=== PATIENT | male | born 1960 | race Caucasian/White ===

== ENCOUNTER 2017-07-23 07:15 | Observation (INO) | payer OTHER ==
[~2017-07-23] VITALS: Ht 170.2 cm; Wt 83.5 kg
[2017-07-23] VITALS (13 sets, daily range): BP systolic 85–108; BP diastolic 51–73
--- NOTE | ~2017-07-23 | H ---
[address] [address] HISTORY AND PHYSICAL Name: KORY BLAS Room: [address] IN ..#: [id number] Admission: 07/23/17 Attend Phys: Ryan Olmos MD, Discharge: 07/24/17 Date of : 56 Report #: [id number] THIS REPORT FOR: //name// Please refer to the History and Physical performed in the physician's office. By: 1452Medical Records Staff COLT /JOHNNY
[~2017-07-23 07:15] MED LIST: ALDACTONE25 MG PO; ASPIR 8181 MG PO; ASPIRIN325 PO; ATORVASTATIN CA40 MG PO; CARVEDILOL3.125 MG PO; EFFIENT10 MG PO; LIPITOR80 MG PO; LOPRESSOR25 PO; NITROGLYCERIN0.4 MG SUBLING; PAXIL10 MG
[2017-07-23 08:00] LABS: HEMATOCRIT 40.2 % (42.0-52.0); HEMOGLOBIN 13.6 gm/dL (14.0-18.0); MCH 31.9 pg (26.0-34.0); MCHC 33.8 g/dL (28.0-37.0); MCV 94.4 fL (80.0-100.0); MPV 9.7 fl. (7.2-11.1); RBC 4.26 mil/uL (4.50-6.00); RDW-CV 13.8 % (10.5-14.5); WBC 7.6 thou/uL (4.0-11.0)
[2017-07-23] MEDS ORDERED: PLAVIX 75 MG TA75 M1 PO (08:14)
[2017-07-23] MEDS ORDERED: LASIX 20 MG TAB20 MG PO (08:15)
[2017-07-23 08:19] LABS: APTT 27.8 Seconds (25.0-31.3); PROTIME 10.2 Seconds (9.20-11.50)
[2017-07-23 09:07] LABS: ANION GAP 7 mmol/L (7-16); BUN 22 mg/dL (7-18); CALCIUM 9.7 mg/dL (8.5-10.1); CHLORIDE 103 mmol/L (98-107); CO2 29 mmol/L (21-32); CREATININE 1.1 mg/dL (0.6-1.3); GLUCOSE 96 mg/dL (70-99); POTASSIUM 3.7 mmol/L (3.5-5.1); SODIUM 139 mmol/L (136-145)
[2017-07-23 09:12] LABS: ALBUMIN 3.7 g/dL (3.4-5.0); ALKALINE PHOSPHATASE 108 U/L (46-116); CHOLESTEROL 117 mg/dL (<200); HDL CHOLESTEROL 35 mg/dL (>40); LDL CHOLESTEROL 67 mg/dL (<100); SGOT 30 U/L (15-37); SGPT 48 U/L (30-65); TC:HDL 3.3 Ratio (Not establshd); TOTAL BILIRUBIN 0.4 mg/dL (<0.1-1.0); TOTAL PROTEIN 7.7 g/dL (6.4-8.2); TRIGLYCERIDE 75 mg/dL (<150); VLDL 15 mg/dL (<40)
[2017-07-23 09:15] LABS: SERUM ASSESSMENT Clear
--- NOTE | 2017-07-23 12:57 | CARD ---
[facility] [address] [place] [address] CARDIAC CATH REPORT Name: KORY BLAS Room: [address] IN [facility]#: [id number] Admission: 07/23/17 Attend Phys: Ryan Olmos MD, Discharge: Date of : 56 Report #: [id number] THIS REPORT FOR: //name// APPROVED REPORT Study performed: 07/23/2017 08:44:53 Patient Details Patient Status: Out-Patient Room #: The patient is a 57 year-old male Event Personnel Kayce Pagan, Kirstin Conrad RN RN, Sharonda Govea RN RN, Elsie Valdez Holkins, John Agricultural Engineer Procedures Performed Art Access - R femoral artery* , Left Heart CatheterizationLeft Heart Cath w/LT VGram [id number] LHCLV ANNE Place w/wo Plasty Single CIRC [id number] Indication Positive stress test, Chest pain Risk Factors Peripheral Vascular Disease, Hypercholesterolemia, Hypertension Previous Procedures/Diagnoses Previous CABGPrevious PCI Admission/Lab Medications/Medications given during procedure Aspirin, Platelet Aff. Inhib., Angiomax bolus and infusion Procedure Narrative The patient was brought electively to the Cardiac Catheterization Laboratory and was prepped and draped in a sterile manner. The right femoral was infiltrated with 2% Lidocaine subcutaneous anesthesia. A 6fr Ultimum Sheath sheath was inserted into the right femoral artery. Coronary angiography was performed using coronary diagnostic catheters. The right coronary system was accessed and visualized with a Diagnostic 6fr JR 4 catheter. The left coronary system was accessed and visualized with a Diagnostic 6fr JL 4 catheter. The left ventricle was accessed and visualized with a Diagnostic catheter. Left ventricular/Aortic Valve gradient [place] [address] CARDIAC CATH REPORT Name: KORY BLAS Room: [address]#: [id number] Admission: 07/23/17 Attend Phys: Ryan Olmos MD, Discharge: Date of : 56 Report #: [id number] pullback. Left ventriculogram was performed in LOPEZ projection. Pre-demployment femoral angiogram was performed . Closure device was deployed with a 6 Fr Angioseal STS 6Fr. The patient tolerated the procedure well and there were no complications associated with the procedure. There was no hematoma. Intraoperative Conscious Sedation Sedation start time: 09:45 Case end Time: 11:29 Fentanyl 100 mcg Versed 4 mg Fluoro Time: 22.6 minutes Dose: 3671 mGy Contrast Type and Amount: Visipaque 420 ml Coronary Angiography The patient's coronary anatomy is left dominant. [place] Artery Percent Stenosis #1 there is a single totally occluded vein graft to the first diagonal branch of the LAD Diagnostic Cath Left Main 0% narrowing LAD 40% mid LAD narrowing with 30% distal LAD narrowing; 100% occlusion of the first diagonal branch of the LAD Circumflex Dominant vessel with 40% proximal narrowing and 80% tubular distal narrowing before the posterior descending branch Right Coronary Small nondominant vessel with 40% proximal and mid vessel narrowing Left Ventriculography The left ventricle is normal in size with contractility. The left ventricular ejection fraction is estimated to be 40%. Left ventricular wall motion abnormalities are present. There is no mitral insufficiency. There is akinesis of the midportion of the anterior wall and hypokinesis of the mid inferior wall Hemodynamics The aortic pressure is 96/59 mmHg with a mean of mmHg. The left ventricular pressure is 98/1 mmHg with a mean of mmHg. The left ventricular end diastolic pressure is 7 mmHg. There was no gradient across the aortic valve upon pullback. Pullback from the left ventricle to the aorta revealed no gradient across [place] [address] CARDIAC CATH REPORT Name: KORY BLAS Room: [address] IN [facility]#: [id number] Admission: 07/23/17 Attend Phys: Ryan Olmos MD, Discharge: Date of : 56 Report #: [id number] PCI Technique Lesion Anticoagulation was achieved with Angiomax. Percutaneous coronary intervention was performed on the distal circumflex artery segment. The lesion stenosis prior to intervention was 80% with TAMARA 3 flow. A 6FR LAUNCHER EBU 3.5 Guide Catheter was used to engage the left ostium. A IG: ProwaterFlex 180CM Interventional Guidewire was used to cross the lesion. BALLOON DILATION A Balloon catheter Trek RX 2.25 X 12 was inserted and inflated up to 8.00atm for 11seconds. STENT DEPLOYMENT A drug-eluting stent Xience Alpine RX 2.25X15, 2.25x12 was inserted and inflated up to 10, 8atm for 12seconds. Additional Inflation: 8.00atm for 9seconds. POST STENT DEPLOYMENT BALLOON DILATION A Balloon catheter NC Trek RX 2.25x12 was inserted and inflated up to 18atm for 10seconds. Final angiography reveals 10 % stenosis with TAMARA 3 flow. STENT DEPLOYMENT A drug-eluting stent Xience Alpine RX 2.25X12 was inserted and inflated up to 8.00atm for 13seconds. Additional Inflation: 12.00atm for 8seconds. Additional Inflation: 10.00atm for 10seconds. POST STENT DEPLOYMENT BALLOON DILATION A Balloon catheter NC Trek RX 2.25x12 was inserted and inflated up to 14.00atm for 10seconds. Additional Inflation: 18.00atm for 10seconds. Conclusion #1 significant coronary artery disease characterized by the following: A 40% mid LAD narrowing with total occlusion of the first diagonal branch of the LAD B dominant circumflex with 40% proximal narrowing and 80% distal narrowing before a prominent posterior descending branch C small nondominant right coronary with 40% proximal and [place] [address] CARDIAC CATH REPORT Name: KORY BLAS Room: [facility] IN [facility]#: [id number] Admission: 07/23/17 Attend Phys: Ryan Olmos MD, Discharge: Date of : 56 Report #: [id number] #2 graft study characterized by following: A single totally occluded vein graft to the diagonal branch of the LAD #3 moderate impairment in global left ventricular systolic function, estimated ejection fraction 40% with mid anterior akinesis and mid inferior hypokinesis #4 normal left-sided hemodynamics study #5 successful percutaneous coronary intervention with deployment of 2 drug-eluting stents at the site of 80% distal circumflex stenosis with 10% residual narrowing following stent deployment and TAMARA-3 flow to the distal vessel Recommendations Cardiac Risk Reduction Program Aggressive Medical Therapy Medications Administered Aspirin (any) Prasugrel Diagnostic Cath Approved by: Ryan Olmos MD Date/Time: 07/23/17 at 1254 hrs. <ELECTRONICALLY SIGNED> By: Ryan Olmos MD, FACC 07/23/17 1257 1257 1257Joruth Olmos MD, FAC /INF
--- NOTE | 2017-07-23 13:12 | EKG ---
[place] [address] ELECTROCARDIOGRAM REPORT Name: KORY BLAS Room: [address] IN .R.#: [id number] Admission: 07/23/17 Attend Phys: Ryan Olmos MD, Discharge: Date of : 56 Report #: [id number] THIS REPORT FOR: //name// [facility] Test Date: 2017-07-23 Test Time: 08:00:11 Pat Name: KORY WAN Department: Room: Gender: Product Tester: : 1960 Requested By: Ryan Olmos Order Number: [id number] Arianna MD: Ryan Olmos Measurements Intervals [place] Rate: 59 P: -2 UT: 193 QRS: 79 QRSD: 112 T: 83 QT: 407 QTc: 404 Interpretive Statements Sinus rhythm IRBBB and LPFB Low voltage, extremity and precordial leads No previous ECG available for comparison Electronically Signed On 07-23-2017 13:12:00 CDT by Ryan Olmos [email or web address] <ELECTRONICALLY SIGNED> By: Ryan Olmos MD, [facility] 07/23/17 1312 9 9 Ryan Olmos MD, FACC /EPI
--- NOTE | 2017-07-23 13:13 | EKG ---
[place] [address] ELECTROCARDIOGRAM REPORT Name: KORY BLAS Room: [address] IN [facility].#: [id number] Admission: 07/23/17 Attend Phys: Ryan Olmos MD, Discharge: Date of : 56 Report #: [id number] THIS REPORT FOR: //name// [facility] Test Date: 2017-07-23 Test Time: 12:52:09 Pat Name: KORY WAN Department: Room: Gender: Java Software: : 1960 Requested By: Ryan Olmos Order Number: [id number] Arianna MD: Ryan Olmos Measurements Intervals [place] Rate: 61 P: 35 WI: 198 QRS: 106 QRSD: 107 T: 87 QT: 405 QTc: 408 Interpretive Statements Sinus rhythm Low voltage, precordial leads Consider right ventricular hypertrophy No previous ECG available for comparison Electronically Signed On 07-23-2017 13:13:05 CDT by Ryan Olmos [email or web address] <ELECTRONICALLY SIGNED> By: Ryan Olmos MD, [facility] 07/23/17 1313 1251 51 Ryan Olmos MD, FACC /EPI
[2017-07-24] VITALS: BP 90/55
[2017-07-24 04:00] VITALS: BP 94/64
[2017-07-24 04:56] LABS: HEMATOCRIT 38.5 % (42.0-52.0); HEMOGLOBIN 12.9 gm/dL (14.0-18.0); MCH 32.1 pg (26.0-34.0); MCHC 33.6 g/dL (28.0-37.0); MCV 95.6 fL (80.0-100.0); MPV 10.1 fl. (7.2-11.1); RBC 4.02 mil/uL (4.50-6.00); RDW-CV 14.2 % (10.5-14.5); WBC 7.7 thou/uL (4.0-11.0)
[2017-07-24 05:29] LABS: CALCIUM 8.8 mg/dL (8.5-10.1); CREATININE 1.1 mg/dL (0.6-1.3); TOTAL BILIRUBIN 0.4 mg/dL (<0.1-1.0); TROPONIN-I LEVEL 0.08 ng/mL (<0.06)
[2017-07-24 05:30] LABS: POTASSIUM 4.8 mmol/L (3.5-5.1)
[2017-07-24 08:46] VITALS: BP 107/72
[2017-07-24 09:34] VITALS: BP 112/63
[2017-07-24] MEDS ORDERED: EFFIENT10 MG PO (10:14)
--- NOTE | 2017-07-24 11:42 | EKG ---
[place] [address] ELECTROCARDIOGRAM REPORT Name: KORY BLAS Room: [address] IN [facility]#: [id number] Admission: 07/23/17 Attend Phys: Ryan Olmos MD, Discharge: 07/24/17 Date of : 56 Report #: [id number] THIS REPORT FOR: //name// [facility] Test Date: 2017-07-24 Test Time: 04:40:22 Pat Name: KORY BLAS Department: Room: Gender: Director Counseling Bureau: [facility] : 1960 Requested By: Ryan Olmos Order Number: [id number] Reading MD: Byron Nielsen Measurements Intervals [place] Rate: 63 P: 1 MA: 185 QRS: 96 QRSD: 108 T: 89 QT: 401 QTc: 411 Interpretive Statements Sinus rhythm Borderline right axis deviation Low voltage, extremity and precordial leads RSR' in V1 or V2, probably normal variant Nonspecific T abnormalities, lateral leads Compared to ECG 07/23/2017 12:52:09 RSR' in V1 or V2 now present T-wave abnormality now present Electronically Signed On 07-24-2017 11:42:05 CDT by Byron Nielsen [email or web address] <ELECTRONICALLY SIGNED> By: Byron Nielsen MD, [facility] 07/24/17 1142 9 9 Byron Nielsen MD, [facility] /EPI
--- NOTE | 2017-07-25 13:11 | D ---
[facility] [address] [place] [address] DISCHARGE SUMMARY Name: KORY BLAS Room: [address] IN M.R.#: [id number] Admission: 07/23/17 Attend Phys: Ryan Olmos MD, Discharge: 07/24/17 Date of : 56 Report #: [id number] THIS REPORT FOR: //name// CC: Ryan Anguiano DATE OF SERVICE: 07/24/2017 FINAL DISCHARGE DIAGNOSES: 1. Abnormal nuclear stress test. 2. Recurrent chest pain. 3. Coronary artery disease, status post remote coronary artery bypass grafting and more recent percutaneous coronary intervention to the distal circumflex on 07/23/2017. 4. Ischemic cardiomyopathy. 5. Hypertension. 6. Hyperlipoproteinemia. PROCEDURES: 07/23/2017 -- left heart catheterization, left ventriculography, selective coronary arteriography, aortocoronary saphenous vein bypass graft study, and percutaneous coronary intervention to the distal circumflex. The patient is a very pleasant 57-year-old male with complex coronary artery disease, status post remote coronary artery bypass grafting and inferolateral infarction interrupted by stenting of the circumflex 2 years ago. He presented now with episodes of chest discomfort and an abnormal nuclear stress test. In that context, cardiac catheterization was performed. That study demonstrated totally occluded vein graft to the diagonal with 40% mid LAD narrowing, 40% narrowing in the mid portion of the right coronary artery and 40% proximal circumflex with 80% distal circumflex narrowing, this being a dominant vessel with a narrowing in the circumflex being just prior to a prominent posterior descending branch. I deployed 2 drug-eluting stents in the distal circumflex with a 10% residual narrowing at the site of previously noted 80% stenosis. The patient did well post-procedurally and ambulated in the hallways without difficulty. LABORATORY DATA: On 07/24/2017 revealed a sodium of 142, potassium 4.8, BUN 17, creatinine 1.1, hemoglobin 12.9, white blood cell count 7700 with 163,000 platelets. Troponin 0.08. Cholesterol 117, triglycerides 75, HDL 35, LDL 67. The patient was discharged to home on the following medications: Aspirin 81 mg daily, atorvastatin 80 mg at bedtime, carvedilol 6.25 mg b.i.d., furosemide 20 mg daily, prasugrel or Effient 10 mg daily with a 60 mg loading dose given on 07/23/2017. [place] [address] DISCHARGE SUMMARY Name: KORY BLAS Room: [address]#: [id number] Admission: 07/23/17 Attend Phys: Ryan Olmos MD, Discharge: 07/24/17 Date of : 56 Report #: [id number] The patient will be seen in followup by myself on 09/01/2017. <ELECTRONICALLY SIGNED> By: Ryan Olmos MD, [facility] 07/25/17 1311 0932 [id number] Ada Olmos MD, [facility]ALS[facility] /nt
[2017-08-04] MEDS ORDERED: ALLOPURINOL 10100 M1 PO (09:45)
[2017-08-04] MEDS ORDERED: K-DUR10 MEQ PO (09:45)
== END 2017-07-24 10:47 | disposition home or self-care (01) ==
LOC: M.CL 07:15 → M.TBA-CV 11:48 → M.2W 11:48
PROVIDERS: ADMIT Internal Medicine
DX: I25.10 Atherosclerotic heart disease of native coronary artery without angina pectoris (principal); I25.5 Ischemic cardiomyopathy; I21.4 Non-ST elevation (NSTEMI) myocardial infarction; I10 Essential (primary) hypertension; I42.9 Cardiomyopathy, unspecified; E78.00 Pure hypercholesterolemia, unspecified; R94.39 Abnormal result of other cardiovascular function study; Z98.890 Other specified postprocedural states; Z72.89 Other problems related to lifestyle; Z87.891 Personal history of nicotine dependence; Z95.1 Presence of aortocoronary bypass graft; Z95.5 Presence of coronary angioplasty implant and graft; R07.9 Chest pain, unspecified

== ENCOUNTER 2020-01-10 09:24 | Observation (INO) | payer OTHER ==
[2020-01-10] VITALS (18 sets, daily range): BP systolic 93–122; BP diastolic 49–73
[~2020-01-10] VITALS: Ht 170.2 cm; Wt 73.9 kg
[~2020-01-10 09:24] MED LIST changes: +ALLOPURINOL 10100 M1 PO; +ALLOPURINOL 30300 M1 PO; +FISH OIL 1,001000 M2 PO; +K-DUR10 MEQ PO; +LASIX 20 MG TAB20 MG PO; +LYRICA25 MG PO; +MELOXICAM15 MG PO; +PLAVIX 75 MG TA75 M1 PO
[2020-01-10] MEDS ORDERED: VITAMIN B COMP1 EACH PO (09:47)
[2020-01-10] MEDS ORDERED: COQ-10100 MG PO (09:48)
[2020-01-10] MEDS ORDERED: MITIGARE0.6 MG PO (09:48)
[2020-01-10] MEDS ORDERED: GLUCOSAMINE &1 EACH PO (09:50)
[2020-01-10] MEDS ORDERED: RESTORIL30 MG PO (09:50)
[2020-01-10 10:23] LABS: HEMATOCRIT 40.5 % (42.0-52.0); HEMOGLOBIN 13.4 gm/dL (14.0-18.0); MCH 31.3 pg (26.0-34.0); MCHC 33.1 g/dL (28.0-37.0); MCV 94.6 fL (80.0-100.0); MPV 9.6 fl. (7.2-11.1); RBC 4.28 mil/uL (4.50-6.00); RDW-CV 14.4 % (10.5-14.5); WBC 6.9 thou/uL (4.0-11.0)
[2020-01-10 10:29] LABS: ANION GAP 4 mmol/L (7-16); BUN 22 mg/dL (7-18); CALCIUM 9.3 mg/dL (8.5-10.1); CHLORIDE 106 mmol/L (98-107); CO2 31 mmol/L (21-32); CREATININE 1.1 mg/dL (0.6-1.3); GLUCOSE 101 mg/dL (70-99); POTASSIUM 4.5 mmol/L (3.5-5.1); SODIUM 141 mmol/L (136-145)
[2020-01-10 10:34] LABS: ALBUMIN 3.6 g/dL (3.4-5.0); ALKALINE PHOSPHATASE 99 U/L (46-116); CHOLESTEROL 119 mg/dL (<200); HDL CHOLESTEROL 54 mg/dL (>40); LDL CHOLESTEROL 60 mg/dL (<100); SGOT 26 U/L (15-37); SGPT 40 U/L (30-65); TC:HDL 2.2 Ratio (Not establshd); TOTAL BILIRUBIN 0.4 mg/dL (<0.1-1.0); TOTAL PROTEIN 7.4 g/dL (6.4-8.2); TRIGLYCERIDE 25 mg/dL (<150); VLDL 5 mg/dL (<40)
[2020-01-10 10:36] LABS: SERUM ASSESSMENT Clear
[2020-01-10 10:42] LABS: APTT 25.4 Seconds (25.0-31.3); PROTIME 10.5 Seconds (9.20-11.50)
--- NOTE | 2020-01-10 18:45 | CARD ---
[address] [address] CARDIAC CATH REPORT Name: KORY BLAS Room: [address] M.R.#: [id number] Admission: 01/10/20 Attend Phys: Ryan Olmos MD, Discharge: Date of : 56 Report #: [id number] THIS REPORT FOR: //name// cc: Mireille Park Christine L. DO ~ APPROVED REPORT Study performed: 01/10/2020 11:29:20 Patient Details Patient Status: Out-Patient Room #: The patient is a 59 year-old male Event Personnel Lavern Dunne RN RN, Joseph Harmon RTR Monitor, Bradley Lorenzo Holkins, John Mail Clerk Bills, Ailin Dias RTR Monitor Procedures Performed Left Heart Cath Coronaries, Bypass Grafts Art Access - R femoral artery ANNE w/Atherectomy Single LAD Hemostasis w/ Angioseal Indication Unstable angina , Positive stress test Risk Factors Hypercholesterolemia, Hypertension Previous Procedures/Diagnoses Previous CABG, Previous NM Admission/Lab Medications/Medications given during procedure Fentanyl IV 25 mcg, Midazolam (Versed) IV 1 mg, Lidocaine Subcut 20 ml, Heparin IV 7000 units, Angiomax IV 11 ml, Adenosine IV 620 ml per hr, Angiomax Drip IV 45.93 ml per hr, Nitroglycerin IC 150 mcg, Nitroglycerin IC 200 mcg, Aspirin PO 162 mg, Effient PO 60 mg Procedure Narrative The patient was brought electively to the Cardiac Catheterization Laboratory and was prepped and draped in a sterile manner. The right femoral was infiltrated with 2% Lidocaine subcutaneous anesthesia. A Reagan 6 FR sheath was inserted into the right femoral artery. Coronary angiography was performed [place] [address] CARDIAC CATH REPORT Name: KORY BLAS Room: [address]#: [id number] Admission: 01/10/20 Attend Phys: Ryan Olmos MD, Discharge: Date of : 56 Report #: [id number] catheters. The right coronary system was accessed and visualized with a Diagnostic 6 Fr JR 4 catheter. The left coronary system was accessed and visualized with a Diagnostic 6 Fr JL 4 catheter. The left ventricle was accessed and visualized with a Diagnostic 6 Fr Pigtail catheter. Left ventricular/Aortic Valve gradient assessed via catheter pullback. Left ventriculogram was performed in LOPEZ projection. Pre-demployment femoral angiogram was performed . Closure device was deployed with a Fr Angioseal STS 6Fr. The patient tolerated the procedure well and there were no complications associated with the procedure. There was no hematoma. Intraoperative Conscious Sedation Sedation start time: 11:38 Case end Time: 13:20 Fentanyl 25 mcg Versed 1 mg Fluoro Time: 23.7 minutes Dose: DAP 077447 cGycm2 3583 mGy Contrast Type and Amount: Visipaque 500 ml Coronary Angiography The patient's coronary anatomy is left dominant. [place] Artery Percent Stenosis Total occlusion of a previously constructed saphenous vein graft to the circumflex Diagnostic Cath Left Main 0% narrowing LAD 80% calcified mid LAD stenosis followed by 75% slightly more distal mid LAD stenosis Circumflex 40% mid vessel stenosis with a widely patent distal stent Right Coronary Nondominant vessel with a collateral from a distal right ventricular branch to a small subbranch of the distal circumflex Hemodynamics The aortic pressure is 96/56 mmHg with a mean of 72 mmHg. The left ventricular pressure is 93/-1 mmHg with a mean of mmHg. The left ventricular end diastolic pressure is 14 mmHg. PCI Technique Lesion Anticoagulation was achieved with Angiomax Drip. Patient was preloaded with Angiomax IV 11 ml. Percutaneous coronary intervention was performed on the mid left anterior [place] [address] CARDIAC CATH REPORT Name: KORY BLAS Room: [address]#: [id number] Admission: 01/10/20 Attend Phys: Ryan Olmos MD, Discharge: Date of : 56 Report #: [id number] lesion stenosis prior to intervention was 80% with TAMARA 3 flow. A 6FR LAUNCHER EBU 4.0 Guide Catheter was used to engage the left ostium. A IG: BMW 190cm Interventional Guidewire was used to cross the lesion. BALLOON DILATION A Balloon catheter Trek RX 2.5 X 8 was inserted and inflated up to 16.00atm for 12seconds. A balloon catheter Angiosculpt 2.5 x 10cm was inserted and inflated up to 14 SAIGE for 17 seconds, 16 SAIGE for 13 seconds, and 17 SAIEG for 13 seconds STENT DEPLOYMENT A drug-eluting stent [place] RX Stent 2.5X12mm was inserted and inflated up to 14.00atm for 9seconds. Additional Inflation: 16.00atm for 7seconds. POST STENT DEPLOYMENT BALLOON DILATION A Balloon catheter was inserted and inflated up to 16.00atm for 12seconds. Final angiography reveals 0 % stenosis with TAMARA 3 flow. STENT DEPLOYMENT A drug-eluting stent M[place] RX Stent 2.57Q79jp, 2.0x8 was inserted and inflated up to 12atm for 15seconds. POST STENT DEPLOYMENT BALLOON DILATION A Balloon catheter NC Trek RX 2.25 X 8 was inserted and inflated up to 18atm for 10seconds. Final angiography reveals 0 % stenosis with TAMARA 3 flow. Conclusion 1. Significant coronary artery disease characterized by the following: A tandem 80% heavily calcified and 75% mid LAD stenoses B 40% narrowing in the midportion of the dominant circumflex C nondominant right coronary artery with collaterals from a right ventricular branch to a small distal subbranch of the circumflex 2. Single occluded vein [place] [address] CARDIAC CATH REPORT Name: KORY BLAS Room: [address] Hilary Coughlin#: [id number] Admission: 01/10/20 Attend Phys: Ryan Olmos MD, Discharge: Date of : 56 Report #: [id number] 3. Moderate impairment in global LV function, estimated ejection fraction 35 - 40% with mid anterior akinesis and anteroapical hypokinesis 4. FFR performed on the LAD with a minimum value of 0.80, suggesting hemodynamic significance 5. Successful atherotomy/atherectomy with stenting of the first of 2 LAD lesions with 0% residual narrowing 6. Successful PTCA with stenting of the more distal of the 2 mid LAD lesions with 0% residual narrowing and TAMARA-3 flow to the distal vessel Recommendations Cardiac Risk Reduction Program Aggressive Medical Therapy Medications Administered Aspirin (any) Prasugrel Diagnostic Cath Approved by: Ryan Olmos MD Date/Time: 01/10/2020 18:41:50 <ELECTRONICALLY SIGNED> By: Ryan Olmos MD, FACC 01/10/201844 44 44Ryan Olmos MD, FACC /INF
[2020-01-11] VITALS: BP 100/53
[2020-01-11 04:00] VITALS: BP 91/47
[2020-01-11 05:29] LABS: HEMOGLOBIN 12.3 gm/dL (14.0-18.0); MCHC 33.3 g/dL (28.0-37.0); MCV 93.1 fL (80.0-100.0); MPV 10.1 fl. (7.2-11.1); RBC 3.98 mil/uL (4.50-6.00); RDW-CV 14.5 % (10.5-14.5); WBC 7.9 thou/uL (4.0-11.0)
[2020-01-11 05:46] LABS: CALCIUM 8.5 mg/dL (8.5-10.1); CREATININE 0.9 mg/dL (0.6-1.3); POTASSIUM 3.8 mmol/L (3.5-5.1); TOTAL BILIRUBIN 0.8 mg/dL (<0.1-1.0); TOTAL PROTEIN 6.2 g/dL (6.4-8.2)
[2020-01-11 05:48] LABS: TROPONIN-I LEVEL 0.85 ng/mL (<0.06)
[2020-01-11 08:00] VITALS: BP 94/59
--- NOTE | 2020-01-11 09:02 | EKG ---
[place] [address] ELECTROCARDIOGRAM REPORT Name: DANNY BLASREY EMILY Room: [address] M.R.#: [id number] Admission: 01/10/20 Attend Phys: Mainor Ayala Discharge: Date of : 56 Date of Service: 01/10/20 1022 Report #: [id number] THIS REPORT FOR: //name// [facility] Test Date: 2020-01-10 Test Time: 10:22:31 Pat Name: KORY BLAS Department: Room: [facility] Gender: M Husbandry Person: JACQUELINE : 1960 Requested By: Ryan Olmos Order Number: [id number] Reading MD: Glen Spencer Measurements Intervals [place] Rate: 55 P: 127 NC: 187 QRS: 191 QRSD: 107 T: 149 QT: 386 QTc: 370 Interpretive Statements Sinus rhythm, incomplete right bundle branch block Probable left atrial enlargement. Consider right arm left arm lead reversal. Low voltage with right axis deviation Probable right ventricular hypertrophy Abnormal T, consider ischemia, lateral leads Borderline ST elevation, anterior leads Compared to ECG 07/24/2017 04:40:22 Possible ischemia now present ST (T wave) deviation now present T-wave abnormality still present Electronically Signed On 01-11-2020 9:02:26 NEUROPSYCHIATRIST by Glen Spencer [email or web address] <ELECTRONICALLY SIGNED> By: Carlos Spencer MD, [facility] 01/11/2002 21 1022 Carlos Spencer MD, [facility] /EPI
--- NOTE | 2020-01-11 09:08 | EKG ---
[place] [address] ELECTROCARDIOGRAM REPORT Name: PITOONOFREKORY EMILY Room: [address] M.R.#: [id number] Admission: 01/10/20 Attend Phys: Mainor Ayala Discharge: Date of : 56 Date of Service: 01/10/20 1602 Report #: [id number] THIS REPORT FOR: //name// [facility] Test Date: 2020-01-10 Test Time: 16:02:12 Pat Name: KORY BLAS Department: Room: [address] Gender: M Milk Runner: JACQUELINE : 1960 Requested By: Ryan Olmos Order Number: [id number] Reading MD: Glen Spencer Measurements Intervals [place] Rate: 63 P: 42 DC: 196 QRS: 82 QRSD: 107 T: 72 QT: 362 QTc: 371 Interpretive Statements Sinus rhythm Borderline right axis deviation Low voltage, precordial leads RSR' in V1 or V2, probably normal variant Consider anterior infarct Compared to ECG 01/10/2020 10:22:31 RSR' in V1 or V2 now present Myocardial infarct finding now present T-wave abnormality no longer present Possible ischemia no longer present ST (T wave) deviation no longer present Electronically Signed On 01-11-2020 9:08:50 TEXTILE COATING MACHINE OPERATOR by Glen Spencer [email or web address] <ELECTRONICALLY SIGNED> By: Carlos Spencer MD, [facility] 01/11/2008 01 01 Carlos Spencer MD, [facility] /EPI
--- NOTE | 2020-01-11 09:09 | EKG ---
[place] [address] ELECTROCARDIOGRAM REPORT Name: DANNY BLASREY EMILY Room: [address] M.R.#: [id number] Admission: 01/10/20 Attend Phys: Mainor Ayala Discharge: Date of : 56 Date of Service: 01/11/20 0530 Report #: [id number] THIS REPORT FOR: //name// [facility] Test Date: 2020-01-11 Test Time: 05:30:20 Pat Name: KORY BLAS Department: Room: [address] Gender: M Meteorology Professor: [facility] : 1960 Requested By: Ryan Olmos Order Number: [id number] Reading MD: Glen Spencer Measurements Intervals [place] Rate: 58 P: 36 [place]: 181 QRS: 99 QRSD: 110 T: 88 QT: 394 QTc: 387 Interpretive Statements Sinus rhythm Right axis deviation, RSR prime V1 and V2 consider incomplete right bundle branch block Low voltage, extremity and precordial leads RSR' in V1 or V2, probably normal variant Consider anterior infarct Compared to ECG 01/10/2020 16:02:12 No significant changes Electronically Signed On 01-11-2020 9:09:32 TRANSPORTATION MECHANIC by Glen Spencer [email or web address] <ELECTRONICALLY SIGNED> By: Carlos Spencer MD, [facility] 01/11/20908 9 9 Carlos Spencer MD, [facility] /EPI
[2020-01-11] MEDS ORDERED: EFFIENT10 MG PO (09:42)
[2020-01-11] MEDS ORDERED: NITROGLYCERIN0.4 MG SUBLING (09:42)
[2020-01-11 11:05] VITALS: BP 94/59
--- NOTE | 2020-01-11 16:32 | D ---
[address] [address] DISCHARGE SUMMARY Name: KORY BLAS Room: [address] Hilary M.R.#: [id number] Admission: 01/10/20 Attend Phys: Ryan Olmos MD, Discharge: 01/11/20 Date of : 56 Report #: [id number] THIS REPORT FOR: //name// cc: Mireille Park Christine L. DO ~ CC: Mireille Olmos DATE OF SERVICE: 01/11/2020 FINAL DISCHARGE DIAGNOSES: 1. Unstable angina. 2. Abnormal stress echocardiogram. 3. Coronary artery disease. 4. Status post remote coronary artery bypass grafting. 5. Status post PTCA with stenting. 6. Hyperlipidemia. 7. Ischemic cardiomyopathy. 8. Hypertension. PROCEDURES: 01/10/2020 -- left heart catheterization, left ventriculography, selective coronary arteriography and percutaneous coronary intervention with atherectomy and stenting of the mid LAD and angioplasty with stenting of a more distal mid LAD segment. The patient is a 59-year-old male with complex coronary artery disease, status post remote coronary artery bypass grafting and subsequent PCIs. More recently, he has noted chest discomfort and dyspnea with exertion with increasing frequency. Recent stress echocardiogram demonstrated development of chest discomfort with abnormal echocardiographic images suggesting inducible ischemia. He has underlying hypertension and hyperlipidemia. In this context, I performed cardiac catheterization on 01/10/2020 which revealed moderate impairment in global LV function, estimated ejection fraction to be 40% with mid anterior akinesis and anteroapical hypokinesis. There was significant coronary artery disease reflected by 80% calcified mid LAD stenosis followed by 75% mid LAD stenosis. The right coronary artery was nondominant with a collateral from the right ventricular branch to the distal branch of the circumflex. There was 40% mid circumflex narrowing with a widely patent distal circumflex stent. Given this data, I elected to perform PCI with atherectomy and stenting of the first of 2 mid LAD lesions and angioplasty with stenting of the second with 0% residual narrowing following stent deployment. The troponin linda inconsequentially to 0.85. He ambulated in the hallways without difficulty and there was good hemostasis at the right [place] [address] DISCHARGE SUMMARY Name: KORY BLAS Room: [address] Madyson#: [id number] Admission: 01/10/20 Attend Phys: Ryan Olmos MD, Discharge: 01/11/20 Date of : 56 Report #: [id number] Laboratory data on 01/11/2020 revealed a sodium 140, potassium 3.8, BUN 17, creatinine 0.9 and glucose 86. Hemoglobin 12.3, white blood cell count 7900 with 149,000 platelets. DISCHARGE MEDICATIONS: He was discharged to home on the following medications: Carvedilol 3.125 mg b.i.d., aspirin 81 mg daily, atorvastatin 80 mg at bedtime, meloxicam 15 mg daily, allopurinol 300 mg daily, fish oil 1000 mg daily, Lyrica 50 mg t.i.d., vitamin B complex 1 tablet daily, Coenzyme Q tablets 200 mg p.o. daily, colchicine 0.6 mg daily, temazepam 30 mg daily, prasugrel 10 mg daily with a 60 mg kiah-procedural dose and p.r.n. sublingual nitroglycerin. I will plan to see the patient in followup on 02/24/2020 in our [facility] office at 1300 hours. Therefore, the patient is discharged to home in stable condition on the aforementioned medications with followup as iterated above. <ELECTRONICALLY SIGNED> By: Ryan Olmos MD, FACC 01/11/20 [id number] Olmos MD, FACC /nt
== END 2020-01-11 11:15 | disposition home or self-care (01) ==
LOC: M.CL 09:24 → M.2W 14:03 → M.TBA-CV 14:03 → M.2W 15:06
PROVIDERS: ADMIT Internal Medicine; ATTEND Internal Medicine
DX: I25.110 Atherosclerotic heart disease of native coronary artery with unstable angina pectoris (principal); E78.5 Hyperlipidemia, unspecified; R94.39 Abnormal result of other cardiovascular function study; I10 Essential (primary) hypertension; I25.5 Ischemic cardiomyopathy; Z98.61 Coronary angioplasty status; Z95.1 Presence of aortocoronary bypass graft